=== PATIENT | male | born 1970 ===

== ENCOUNTER 2018-04-15 11:15 | Outpatient (CLI) | payer OTHER ==
[~2018-04-15] VITALS: Ht 175.3 cm; Wt 79.4 kg
== END 2018-04-15 11:30 | disposition home or self-care (01) ==
LOC: OFIC 805 11:15
DX: H93.13 Tinnitus, bilateral (principal); H90.3 Sensorineural hearing loss, bilateral

== ENCOUNTER 2018-05-13 10:43 | Outpatient (CLI) | payer OTHER ==
[~2018-05-13] VITALS: Ht 152.4 cm; Wt 79.4 kg
== END 2018-05-13 13:57 | disposition home or self-care (01) ==
LOC: OFIC 805 10:43
DX: H93.13 Tinnitus, bilateral (principal); H90.3 Sensorineural hearing loss, bilateral

== ENCOUNTER 2019-11-23 07:13 | Outpatient (CLI) | payer OTHER | END 2019-11-23 07:26 | disposition home or self-care (01) | LOC: NUCLEAR 07:13 | PROVIDERS: ATTEND Internal Medicine Cardiovascular Disease | DX: I20.0 Unstable angina (principal) | CPT/HCPCS: 78452; 93017; A9500 ==